=== PATIENT | male | born 1940 | race Caucasian/White ===

== ENCOUNTER 2017-01-09 08:36 | Emergency (ER) | payer MEDICARE ==
[~2017-01-09] VITALS: Ht 175.3 cm; Wt 79.0 kg
[2017-01-09] MEDS ORDERED: SODIUM CHLORIDE FLUSH 10ML SYR IVF ONE (09:00)
[2017-01-09] MEDS ORDERED: SODIUM CHLORIDE 0.9% 1,000ML IVBOLUS ONE (09:00)
[2017-01-09 09:20] LABS: BLOOD UREA NITROGEN 21 mg/dL (7-18)
[2017-01-09 09:26] LABS: IS PT STATUS REG ER OR PRE ER? YES
[2017-01-09 09:30] VITALS: BP 112/74
== END 2017-01-09 10:01 | disposition home or self-care (01) ==
LOC: ED 09:30
DX: E86.0 Dehydration (principal); J06.9 Acute upper respiratory infection, unspecified; R55 Syncope and collapse; I10 Essential (primary) hypertension; I25.810 Atherosclerosis of coronary artery bypass graft(s) without angina pectoris; Z95.1 Presence of aortocoronary bypass graft
CPT/HCPCS: 36415; 80048; 82040; 84484; 85025; 93005; 99285